=== PATIENT | male | born 1950 | race Caucasian/White ===

== ENCOUNTER 2021-07-28 10:55 | Outpatient (REF) | payer MEDICARE, MEDICAID, SELFPAY ==
[2021-07-28 11:56] LABS: Anion Gap 10 (12-20); Blood Urea Nitrogen 20 mg/dL (9-16); Calcium 9.1 mg/dL (8.4-10.2); Carbon Dioxide 29 mmol/L (22-29); Chloride 107 mmol/L (96-108); Estimated Glomerular Filt Rate > 60; Glucose Random 95 mg/dL (60-115); Potassium 4.8 mmol/L (3.3-5.1); Sodium 141 mmol/L (135-145)
[2021-07-28 12:31] LABS: Vitamin B12 770 pg/mL (200-900)
[2021-07-29 21:25] LABS: Lyme Abs Screen <0.90 index
[2021-07-31 14:35] LABS: IgA 181 mg/dL (70-320); IgG 980 mg/dL (600-1540); IgM 71 mg/dL (50-300)
== END 2021-07-28 10:56 | disposition home or self-care (01) ==
LOC: HO.LAB 10:55
PROVIDERS: Visit Provider Psychiatry & Neurology Neurology
DX: G62.9 Polyneuropathy, unspecified (principal)
CPT/HCPCS: 36415; 80048; 82607; 82784; 86334; 86617; 86618